=== PATIENT | male | born 1955 | race Caucasian/White ===

== ENCOUNTER 2019-12-04 11:14 | Emergency (ER) | payer OTHER ==
[~2019-12-04] VITALS: Ht 188 cm; Wt 83.5 kg
[2019-12-04] MEDS ORDERED: AMOX1TAB5 PO (12:04)
== END 2019-12-04 12:08 | disposition home or self-care (01) ==
LOC: ER 11:14
DX: S50.872A Other superficial bite of left forearm, initial encounter (principal); W54.0XXA Bitten by dog, initial encounter; Y93.89 Activity, other specified; Y92.89 Other specified places as the place of occurrence of the external cause; Y99.8 Other external cause status